=== PATIENT | female | born 1930 | race Caucasian/White ===

== ENCOUNTER 2018-04-27 13:13 | Emergency (ER) | payer MEDICARE ==
--- NOTE | 2018-04-27 13:37 | ERPHSYRPT ---
- History of Present Illness Time Seen by Provider: 04/27/18 13:15 Historian: patient, family Patient Subjective Stated Complaint: Pt arrived via Dr. Brooks in a vehicle at the ambulance bay. Pt holding chest, stated she was cooking and was eating and she was having chest pain. Triage Nursing Assessment: Pt alert and oriented X3, skin pale, cool, clammy. PT holding her chest, able to speak in clear full sentences. Pt in no apparent respiratory distress noted. Physician History: 88 y/o white female was eating lunch with family when she suddenly having substernal cp. no radiation. pt has significant cardiac hx and her novelty dipper is dr. [place]. she has a cardiac EF of < 30%. pt denies soa. Timing/Duration: today Activities at Onset: other (eating lunch) Quality: pressure Location: substernal Chest Pain Radiation: no radiation Severity of Pain-Max: moderate Severity of Pain-Current: mild Modifying Factors: Improves With: nothing Associated Symptoms: No nausea, No vomiting, No palpitations, No heartburn, No abdominal pain, No shortness of breath, No cough, No hurts to breathe, No fatigue, No weakness Prior Chest Pain/Cardiac Workup: cardiac cath, echocardiography Nitro Today/Relief: no nitro taken today Aspirin Treatment Today: 81 mg x 4, provided by ED Allergies/Adverse Reactions: No Known Drug Allergies Allergy (Unverified 04/27/18 13:29) Home Medications: Alprazolam 0.5 mg [xanAX 0.5 MG] 0.5 mg PO DAILY PRN 04/27/18 [History] Amiodarone HCl 200 mg [Cordarone 200 MG] 200 mg PO DAILY 04/27/18 [History ] Apixaban [Eliquis 2.5 mg Tablet] 2.5 mg PO BID 04/27/18 [History] Furosemide 20 mg [Lasix 20 mg] 20 mg PO DAILY 04/27/18 [History] Gabapentin 100 mg PO DAILY 04/27/18 [History] Metformin HCl 500 mg PO BID 04/27/18 [History] Metoprolol Tartrate 25 mg PO DAILY 04/27/18 [History] Omeprazole 20 mg PO DAILY 04/27/18 [History] Potassium Chloride 10 meq PO DAILY 04/27/18 [History] Pravastatin Sodium 40 mg PO DAILY 04/27/18 [History] Ropinirole HCl 4 mg PO DAILY 04/27/18 [History] Sacubitril/Valsartan [Entresto 97 mg-103 mg Tablet] 1 tab PO DAILY 04/27/18 [ History] Sulfasalazine 500 mg [Azulfidine 500 mg] 500 mg PO DAILY 04/27/18 [History ] Hx Tetanus, Diphtheria Vaccination/Date Given: No Hx Influenza Vaccination/Date Given: No Hx Pneumococcal Vaccination/Date Given: No Immunizations Up to Date: Yes - Review of Systems Constitutional: No Symptoms Eyes: No Symptoms Ears, Nose, & Throat: No Symptoms Respiratory: No Symptoms Cardiac: Chest Pain Abdominal/Gastrointestinal: No Symptoms Genitourinary Symptoms: No Symptoms Musculoskeletal: No Symptoms Skin: No Symptoms Neurological: No Symptoms Psychological: No Symptoms Endocrine: No Symptoms Hematologic/Lymphatic: No Symptoms Immunological/Allergic: No Symptoms All Other Systems: Reviewed and Negative - Past Medical History Pertinent Past Medical History: Yes Neurological History: No Pertinent History ENT History: Cataracts Cardiac History: Angina, Arrhythmia, Hypertension Respiratory History: CHF Endocrine Medical History: Diabetes Type II Musculoskeletal History: Arthritis GI Medical History: Gallbladder Disease History: Renal Disease Psycho-Social History: No Pertinent History Female Reproductive Disorders: No Pertinent History - Past Surgical History Past Surgical History: Yes Neuro Surgical History: No Pertinent History Cardiac: No Pertinent History Respiratory: No Pertinent History Gastrointestinal: No Pertinent History Genitourinary: No Pertinent History Musculoskeletal: No Pertinent History Other Surgical History: radha. hysterectomy - Social History Smoking Status: Former smoker Exposure to second hand smoke: No Drug Use: none Patient Lives Alone: Yes - Female History Hx Now: No - Nursing Vital Signs Nursing Vital Signs: Initial Vital Signs Temperature 98.6 F 04/27/18 13:18 Pulse Rate 120 H 04/27/18 13:18 Respiratory Rate 16 04/27/18 13:18 Blood Pressure 196/98 04/27/18 13:18 O2 Sat by Pulse Oximetry 97 04/27/18 13:18 Pain Scale Pain Intensity 8 - Physical Exam General Appearance: no apparent distress, alert Eye Exam: PERRL/EOMI, eyes nml inspection Ears, Nose, Throat Exam: normal ENT inspection, moist mucous membranes Neck Exam: normal inspection, non-tender, supple, full range of motion Respiratory Exam: normal breath sounds, chest tenderness, lungs clear, airway intact, No respiratory distress, No accessory muscle use, No rhonchi, No wheezing, No stridor Cardiovascular Exam: regular rate/rhythm, normal heart sounds, normal peripheral pulses Gastrointestinal/Abdomen Exam: soft, normal bowel sounds, No tenderness, No guarding, No rebound Pelvic Exam: not done Rectal Exam: not done Back Exam: normal inspection, normal range of motion, No CVA tenderness, No vertebral tenderness Extremity Exam: normal inspection, normal range of motion, pelvis stable Neurologic Exam: alert, oriented x 3, cooperative, tape controlled machine stitcher II-XII nml as tested Skin Exam: normal color, warm, dry Lymphatic Exam: adenopathy SpO2 Interpretation: normal SpO2: 97 Oxygen Delivery: Room Air - Course Nursing assessment & vital signs reviewed: Yes EKG Interpreted by Me: RATE (122), Sinus Rhythm, NORMAL AXIS, NORMAL INTERVALS, Non-specific ST Changes (? milddepression 11, 111, avf, v2, v3), Other Ordered Tests: Active Orders 24 hr Category Date Time Status Clipper Operator STAT Care 04/27/18 13:40 Active EKG-ER Only STAT Care 04/27/18 13:39 Active IV Insertion STAT Care 04/27/18 13:39 Active CBC W DIFF Stat Lab 04/27/18 13:30 Received CMP Routine Lab 04/27/18 14:00 Received D-DIMER QUANTITATION Stat Lab 04/27/18 13:30 Received NT PRO BNP Stat Lab 04/27/18 13:30 Completed PROTIME WITH INR Stat Lab 04/27/18 13:30 Received TROPONIN Q3H Lab 04/27/18 13:30 Completed TROPONIN Q3H Lab 04/27/18 16:45 Ordered TROPONIN Q3H Lab 04/27/18 19:45 Ordered TROPONIN Q3H Lab 04/27/18 22:45 Ordered TROPONIN Q3H Lab 04/28/18 01:45 Ordered Medication Summary Generic Name Dose Route Start Last Admin Trade Name Freq PRN Reason Stop Dose Admin Sodium Chloride 1,000 mls @ 100 mls/hr 04/27/18 13:45 04/27/18 14:05 Sodium Chloride 0.9% 1000 Ml IV 05/27/18 13:44 100 mls/hr .Q10H ELSIE Administration Nitroglycerin 0.4 mg 04/27/18 14:24 Nitrostat 0.4 Mg Tablet SL 05/27/18 14:23 Q5MIN PRN MR X 3 PRN CHEST PAIN Discontinued Medications Generic Name Dose Route Start Last Admin Trade Name Sherman PRN Reason Stop Dose Admin Aspirin 324 mg 04/27/18 13:39 04/27/18 13:43 Baby Aspirin 81 Mg Chew PO 04/27/18 13:40 324 mg STAT ONE Administration Morphine Sulfate 1 mg 04/27/18 14:00 04/27/18 14:16 Morphine Sulfate 2 Mg Inj IV 04/27/18 14:01 1 mg STAT ONE Administration Morphine Sulfate Confirm 04/27/18 14:05 Morphine Sulfate 2 Mg Inj Administered 04/27/18 14:06 Dose 2 mg .ROUTE .STK-MED ONE Morphine Sulfate 1 mg 04/27/18 14:26 Morphine Sulfate 2 Mg Inj IV 04/27/18 14:27 STAT ONE Nitroglycerin 0.4 mg 04/27/18 13:39 04/27/18 13:43 Nitrostat 0.4 Mg (Ed) SL 04/27/18 13:40 0.4 mg STAT ONE Administration Ondansetron HCl 4 mg 04/27/18 14:01 04/27/18 14:17 Zofran 4 Mg/2 Ml Vial IV 04/27/18 14:02 4 mg STAT ONE Administration Ondansetron HCl Confirm 04/27/18 14:05 Zofran 4 Mg/2 Ml Vial Administered 04/27/18 14:06 Dose 4 mg .ROUTE .STK-MED ONE Lab/Rad Data: Laboratory Result Diagrams 04/27/18 13:30 Laboratory Results 04/27/18 04/27/18 04/27/18 Range/Units 13:30 13:30 13:30 WBC 7.2 (4.0-10.5) K/mm3 RBC 4.19 (4.1-5.4) M/mm3 Hgb 12.7 (12.0-16.0) gm/dl Hct 39.4 (35-47) % MCV 94.0 (78-100) fl MCH 30.3 (26-32) pg MCHC 32.2 (32-36) g/dl RDW 14.8 H (11.5-14.0) % Plt Count 228 (150-450) K/mm3 MPV 10.5 H (6-9.5) fl Gran % 55.4 (36.0-66.0) % Eos # (Auto) 0.03 (0-0.5) Absolute Lymphs (auto) 2.54 (1.0-4.6) Absolute Monos (auto) 0.63 (0.0-1.3) Lymphocytes % 35.2 (24.0-44.0) % Monocytes % 8.7 (0.0-12.0) % Eosinophils % 0.4 (0.00-5.0) % Basophils % 0.3 (0.0-0.4) % Absolute Granulocytes 4.00 (1.4-6.9) Basophils # 0.02 (0-0.4) Troponin I < 0.012 (0.000-0.034) ng/mL NT-Pro-B Natriuret Pep 493 (0-1800) pg/mL - Progress Progress: improved, re-examined Air Movement: good Blood Culture(s) Obtained: No Antibiotics given: No Discussed with DrDavid: Jase Brooks (brad) Counseled pt/family regarding: lab results, diagnosis, need for follow-up - Departure Time of Disposition: 14:32 Departure Disposition: Transfer Clinical Impression: Chest pain, ST segment depression Condition: Stable Critical Care Time: No Referrals: ALEX BROOKS [Primary Care Provider] -
[2018-04-27] MEDS ORDERED: BABY ASPIRIN 81 MG CHEW PO ONE (13:39)
[2018-04-27] MEDS: Nitrostat 0.4 MG (ED) SL ONE (13:43)
[2018-04-27] MEDS ORDERED: Sodium Chloride 0.9% 1000 ML 1,000 ML IV SCH (13:45)
[2018-04-27] MEDS ORDERED: Sodium Chloride 0.9% 1000 ML 1,000 ML ONE (13:46)
[2018-04-27 13:57] LABS: BASOPHIL % 0.3 % (0.0-0.4); Basophil (Absolute #) 0.02 (0-0.4); Eosinophil % 0.4 % (0.00-5.0); Eosinophil (Absolute #) 0.03 (0-0.5); Granulocytes % 55.4 % (36.0-66.0); Hematocrit 39.4 % (35-47); Hemoglobin 12.7 gm/dl (12.0-16.0); Lymphocyte (Absolute #) 2.54 (1.0-4.6); Lymphocytes % 35.2 % (24.0-44.0); Mean Corpuscular Hemoglobin 30.3 pg (26-32); Mean Corpuscular Hgb Concent. 32.2 g/dl (32-36); Mean Platelet Volume 10.5 fl (6-9.5); Monocyte (Absolute #) 0.63 (0.0-1.3); Monocytes % 8.7 % (0.0-12.0); Platelet Count 228 K/mm3 (150-450); Red Blood Count 4.19 M/mm3 (4.1-5.4); Red Cell Distribution Width 14.8 % (11.5-14.0); White Blood Count 7.2 K/mm3 (4.0-10.5)
[2018-04-27] MEDS ORDERED: MORPHINE SULFATE 2 MG INJ IV ONE ×2 (14:00→14:26)
[2018-04-27] MEDS ORDERED: Zofran 4 MG/2 ML VIAL IV ONE (14:01)
[2018-04-27] MEDS ORDERED: MORPHINE SULFATE 2 MG INJ ONE ×2 (14:05→15:03)
[2018-04-27] MEDS ORDERED: Zofran 4 MG/2 ML VIAL ONE (14:05)
[2018-04-27] MEDS ORDERED: Nitrostat 0.4 MG Tablet SL PRN (14:24)
[2018-04-27] MEDS ORDERED: Nitrostat 0.4 MG (ED) SL ONE (14:24)
[2018-04-27 14:26] LABS: INR 1.11 (0.8-3.0)
[2018-04-27 14:40] LABS: ALBUMIN 4.6 g/dL (3.5-5.0); ANION GAP 15.9 MEQ/L (5-15); BILIRUBIN,TOTAL 0.4 mg/dL (0.2-1.3); Calcium 9.6 mg/dL (8.4-10.2); Creatinine 1 1.36 mg/dL (0.52-1.04); Potassium 3.9 mmol/L (3.5-5.1); Total Protein 8.2 g/dL (6.3-8.2)
[2018-04-27 14:57] VITALS: BP 167/81; PULSE 92; O2SAT 100
== END 2018-04-27 15:45 | disposition short-term general hospital (02) ==
LOC: ED 13:13
DX: R07.9 Chest pain, unspecified (principal); R94.31 Abnormal electrocardiogram [ECG] [EKG]; Z79.899 Other long term (current) drug therapy; E11.9 Type 2 diabetes mellitus without complications; Z79.84 Long term (current) use of oral hypoglycemic drugs
CPT/HCPCS: 36415; 80053; 83880; 84484; 85025; 85379; 85610; 93005; 93041; 96374; 99285; J2270; J2405; A9270-GY

== ENCOUNTER 2018-05-30 20:31 | Emergency (ER) | payer MEDICARE ==
--- NOTE | 2018-05-30 21:00 | ERPHSYRPT ---
- History of Present Illness Time Seen by Provider: 05/30/18 20:52 Historian: patient Exam Limitations: no limitations Patient Subjective Stated Complaint: Pt states "I had open heart in april and I am in [facility] for rehab and my stomach feels odd. I had a very small bowel movement today and not much of one yesterday." Triage Nursing Assessment: Pt alert and oriented X 3, skin pwd. pt able to speak in clear full sentences. Pt in no apparent respiratory distress. PT abdomen slightly firm, a little distended with absent bowel sounds. Physician History: 80-year-old white female with recent CABG who is also on dialysis. Patient arrives with complaint of only 1 small bowel movement today she states that she has been having nausea and dry heaves. She denies any pain. She is not short of breath has no chest pain. Past medical history includes CABG, dialysis, renal failure, cataracts, angina, arrhythmia, high blood pressure, congestive heart failure, diabetes type 2, arthritis, gallbladder disease, renal disease. Past surgical history includes cholecystectomy, hysterectomy, CABG. Social history patient denies tobacco alcohol or illicit drug use. Timing/Duration: today Activities at Onset: none Quality: other (no pain) Abdominal Pain Onset Location: other (no pain) Severity of Pain-Max: none Severity of Pain-Current: none (she any pain on the wa) Modifying Factors: Worsens With: analgesics, antacids (vomiting), breathing, coughing, defecating, eating, exercise, lying down, movement, palpation, rest, urinating, vomiting, position (she was tender in the le), walking Associated Symptoms: nausea, vomiting, other (decreased stool), No back, No chest pain, No diaphoresis, No diarrhea, No fever/chills, No fatigue (she told me really no deb), No headache (she states she hurts in he), No heartburn, No loss of appetite, No neck pain, No rash, No shortness of breath, No syncope, No weakness Allergies/Adverse Reactions: No Known Drug Allergies Allergy (Unverified 04/27/18 13:29) Home Medications: Alprazolam 0.5 mg [xanAX 0.5 MG] 0.5 mg PO HS 04/27/18 [History] Metoprolol Tartrate 25 mg PO DAILY 04/27/18 [History] Pravastatin Sodium 40 mg PO HS 04/27/18 [History] Ropinirole HCl 4 mg PO HS 04/27/18 [History] Sulfasalazine 500 mg [Azulfidine 500 mg] 500 mg PO BID 04/27/18 [History] Amlodipine Besylate [Norvasc] 2.5 mg PO DAILY 05/30/18 [History] Aspirin [Aspirin EC] 81 mg PO DAILY 05/30/18 [History] Insulin Aspart [NovoLOG Insulin] 100 unit SQ DAILY 05/30/18 [History] Hx Tetanus, Diphtheria Vaccination/Date Given: No Hx Influenza Vaccination/Date Given: No Hx Pneumococcal Vaccination/Date Given: No Immunizations Up to Date: Yes - Review of Systems Constitutional: No Fever, No Chills Eyes: No Symptoms Ears, Nose, & Throat: No Symptoms Respiratory: No Cough, No Dyspnea Cardiac: No Chest Pain, No Edema, No Syncope Abdominal/Gastrointestinal: Nausea, Vomiting, No Abdominal Pain, No Diarrhea, No Constipation, No Hematemesis, No Hematochezia, No Melena, No Dysphagia, No Appetite Changes Genitourinary Symptoms: No Dysuria Musculoskeletal: No Back Pain, No Neck Pain Skin: No Rash Neurological: No Dizziness, No Focal Weakness, No Sensory Changes Psychological: No Symptoms Endocrine: No Symptoms All Other Systems: Reviewed and Negative - Past Medical History Pertinent Past Medical History: Yes Neurological History: No Pertinent History ENT History: Cataracts Cardiac History: Angina, Arrhythmia, Hypertension Respiratory History: CHF Endocrine Medical History: Diabetes Type II Musculoskeletal History: Arthritis GI Medical History: Gallbladder Disease History: Renal Disease Psycho-Social History: No Pertinent History Female Reproductive Disorders: No Pertinent History - Past Surgical History Past Surgical History: Yes Neuro Surgical History: No Pertinent History Cardiac: No Pertinent History Respiratory: No Pertinent History Gastrointestinal: No Pertinent History Genitourinary: No Pertinent History Musculoskeletal: No Pertinent History Other Surgical History: radha. hysterectomy. open heart - Social History Smoking Status: Smoker, status unknown Exposure to second hand smoke: No Drug Use: none Patient Lives Alone: No - Female History Hx Now: No - Nursing Vital Signs Nursing Vital Signs: Initial Vital Signs Temperature 99.1 F 05/30/18 20:34 Pulse Rate 97 H 05/30/18 20:34 Respiratory Rate 16 05/30/18 20:34 Blood Pressure 152/73 05/30/18 20:34 O2 Sat by Pulse Oximetry 94 L 05/30/18 20:34 Pain Scale Pain Intensity 0 - Physical Exam General Appearance: no apparent distress, alert Eye Exam: PERRL/EOMI, eyes nml inspection Ears, Nose, Throat Exam: normal ENT inspection, pharynx normal, moist mucous membranes Neck Exam: normal inspection, non-tender, supple, full range of motion Respiratory Exam: normal breath sounds, lungs clear, No respiratory distress Cardiovascular Exam: regular rate/rhythm, normal heart sounds, capillary refill <2 sec Gastrointestinal/Abdomen Exam: soft, No tenderness, No mass Back Exam: normal inspection, normal range of motion, No CVA tenderness, No vertebral tenderness Extremity Exam: normal inspection, normal range of motion, pelvis stable Neurologic Exam: alert, oriented x 3, cooperative, manager of case II-XII nml as tested, normal mood/affect, nml cerebellar function, sensation nml, No motor deficits Skin Exam: normal color, warm, dry SpO2 Interpretation: normal (94%) SpO2: 94 Oxygen Delivery: Room Air - Course Nursing assessment & vital signs reviewed: Yes EKG Interpreted by Me: RATE (93 bpm), Sinus Rhythm, NORMAL AXIS, Other (EKG: Sinus rhythm, 93 bpm, normal axis, no acute ST or T wave changes, compared to April 27, 2018) Ordered Tests: Active Orders 24 hr Category Date Time Status EKG-ER Only STAT Care 05/30/18 20:56 Active IV Insertion STAT Care 05/30/18 20:56 Active ABDOMEN AND PELVIS W/0 CONTRAS [CT] Stat Exams 05/30/18 20:56 Taken CHEST 1 VIEW (PORTABLE) Stat Exams 05/30/18 21:42 Taken AMYLASE Stat Lab 05/30/18 20:58 Completed BLOOD CULTURE Stat Lab 05/30/18 22:09 Received CBC W DIFF Stat Lab 05/30/18 20:58 Completed CMP Stat Lab 05/30/18 20:58 Completed LIPASE Stat Lab 05/30/18 20:58 Completed Lactic Acid Stat Lab 05/30/18 22:02 Completed Manual Differential NC Stat Lab 05/30/18 20:58 Completed Medication Summary Generic Name Dose Route Start Last Admin Trade Name Freq PRN Reason Stop Dose Admin Ceftriaxone Sodium/Dextrose 1 g in 50 mls @ 100 mls/hr 05/30/18 22:00 22:07 Rocephin 1 Gm-D5w 50 Ml Bag IV 05/30/18 22:29 100 ml/hr STAT STA 100 mls/hr Administration Discontinued Medications Generic Name Dose Route Start Last Admin Trade Name Sherman PRN Reason Stop Dose Admin Ceftriaxone Sodium/Dextrose Confirm 05/30/18 22:04 Rocephin 1 Gm-D5w 50 Ml Bag Administered 05/30/18 22:05 Dose 1 g in 50 mls @ ud IV .STK-MED ONE Lab/Rad Data: Laboratory Result Diagrams 05/30/18 20:58 05/30/18 20:58 Laboratory Results 05/30/18 05/30/18 05/30/18 Range/Units 22:02 20:58 20:58 WBC 6.9 (4.0-10.5) K/mm3 RBC 2.79 L (4.1-5.4) M/mm3 Hgb 8.0 L (12.0-16.0) gm/dl Hct 26.8 L (35-47) % MCV 96.1 (78-100) fl MCH 28.6 (26-32) pg MCHC 29.9 L (32-36) g/dl RDW 17.4 H (11.5-14.0) % Plt Count 355 (150-450) K/mm3 MPV 9.6 H (6-9.5) fl Absolute Granulocytes 4.18 (1.4-6.9) Segmented Neutrophils 50 (36.0-66.0) % Band Neutrophils 2 (0.0-2.0) % Lymphocytes (Manual) 27 (24-44) % Monocytes (Manual) 14 H (0.0-12.0) % Eosinophils (Manual) 2 (0.00-3.0) % Basophils (Manual) 1 (0.0-1.0) % Metamyelocytes 1 % Atypical Lymphocytes 3 % Hypochromia 2+ Platelet Estimate NORMAL (NORMAL) RBC Morphology ABNORMAL Polychromasia 1+ Poikilocytosis 1+ Ovalocytes 1+ Schistocytes 1+ Sodium 138 (137-145) mmol/L Potassium 4.7 (3.5-5.1) mmol/L Chloride 94 L (98-107) mmol/L Carbon Dioxide 29 (22-30) mmol/L Anion Gap 19.7 H (5-15) MEQ/L BUN 46 H (7-17) mg/dL Creatinine 5.91 H (0.52-1.04) mg/dL Estimated GFR 7.2 ML/MIN Glucose 107 H (74-106) mg/dL Lactic Acid 1.2 (0.4-2.0) Calcium 9.2 (8.4-10.2) mg/dL Total Bilirubin 0.50 (0.2-1.3) mg/dL AST 26 (14-36) U/L ALT 22 (0-35) U/L Alkaline Phosphatase 108 (38-126) U/L Serum Total Protein 7.5 (6.3-8.2) g/dL Albumin 3.7 (3.5-5.0) g/dL Amylase 125 H (30-110) U/L Lipase 438 H (23-300) U/L - Progress Progress: improved Progress Note: 05/30/18 21:53 This is a 88-year-old white female with history of recent CABG who is on dialysis has a history of renal failure angina arrhythmia high blood pressure congestive heart failure diabetes type 2 She is brought from the senior care by medics with complaint of nausea and vomiting she states she has only had one small stool today. She denies any chest pain she is not short of breath. Patient with an EKG remarkable for sinus rhythm 93 bpm normal axis no acute ST or T wave changes are noted Patient with us CT of the abdomen without contrast Impression: 1. Consolidation at both lung bases with large pleural effusion clinical correlation for pneumonia recommended. 2. 4.6 cm left ovarian cyst. 3. Colonic diverticulosis without evidence of diverticulitis Patient with a white count of 6.9 hemoglobin 8.0 hematocrit 26.8 platelets 355 Chemistry sodium 138 potassium 4.7 chloride 94 bicarbonate 29 BUN 46 creatinine 5.91 glucose 107. Patient does have an elevated amylase of 125 elevated lipase of 438 anion gap is 19.7. Impression 1 nausea and vomiting. 2 history of renal failure. 3. Consolidation at both lung bases with large pleural effusions. 4. History of recent CABG. Plan. Chest x-ray has been ordered in view of the patient's pleural effusions. I have ordered blood cultures and serum lactate. Expect effusion secondary to recent CABG patient without fever, without increased white count. Will discuss case with Dr. Brooks. 05/30/18 22:27 Patient with no abdominal pain at this time she did have some nausea. I've written for Phenergan 12.5 mg IV. I've discussed the patient's findings with Dr. Brooks. She does have a CT which shows consolidation of both lung bases with large pleural effusion clinical correlation for pneumonia recommended Chest x-ray shows a pneumonia in the right base this appears to be improved from previous. Patient is being treated at the senior care with Omnicef. Patient with an EKG which shows normal sinus rhythm 93 bpm normal axis no acute ST or T wave changes. Patient did have elevation of the patient's amylase and lipase with amylase of [address] Brooks states she will repeat these and will call the senior care to order these for tomorrow. Patient does not have an elevated white count is 6.9 hemoglobin 8.0 which is stable for this patient hematocrit 26.8 platelets 355. Patient's BUN and creatinine are 46 and 5.91 patient is scheduled for dialysis tomorrow. Patient has received Rocephin here in the emergency room. Will plan to discharge patient. Diagnosis nausea and vomiting. Right lower lobe pneumonia. Bilateral pleural effusions. History of renal failure on dialysis. Dr. Brooks would like the patient to return to the senior care continue current medications and treatment which includes Omnicef which has already been prescribed for the patient. She would also like the patient he will place on Phenergan Will write for 25 mg orally every 4-6 hours as needed for nausea and vomiting. Patient is to have dialysis as scheduled tomorrow. Dr. Brooks will contact the senior care to call out laboratory studies which she wishes to be performed. - Departure Time of Disposition: 22:30 Departure Disposition: Home Clinical Impression: Bilateral pleural effusion, history of recent CABG, Dialysis patient Nausea and vomiting Qualifiers: Vomiting type: unspecified Vomiting Intractability: non-intractable Qualified Code(s): R11.2 - Nausea with vomiting, unspecified Pneumonia Qualifiers: Pneumonia type: due to unspecified organism Laterality: right Lung location: lower lobe of lung Qualified Code(s): J18.1 - Lobar pneumonia, unspecified organism Chronic renal failure Qualifiers: Chronic kidney disease stage: unspecified stage Qualified Code(s): N18.9 - Chronic kidney disease, unspecified Condition: Fair Critical Care Time: No Referrals: ALFONSO BETH [Primary Care Provider] - Additional Instructions: Return to senior care. Continue current medications and treatment. Phenergan 25 mg orally every 4-6 hours as needed for nausea and vomiting. Dialysis tomorrow as scheduled. Follow-up with Dr. Brooks. Return for acute distress or for severe symptoms. Prescriptions: Promethazine HCl 25 mg [Phenergan 25 mg] 25 mg PO Q4-6HPRN PRN #12 tablet PRN Reason: nausea and vomiting
[2018-05-30 21:01] LABS: Hematocrit 26.8 % (35-47); Mean Cell Volume 96.1 fl (78-100); Mean Corpuscular Hgb Concent. 29.9 g/dl (32-36); Mean Platelet Volume 9.6 fl (6-9.5); Platelet Count 355 K/mm3 (150-450); Red Blood Count 2.79 M/mm3 (4.1-5.4); Red Cell Distribution Width 17.4 % (11.5-14.0); White Blood Count 6.9 K/mm3 (4.0-10.5)
[2018-05-30 21:06] LABS: ALBUMIN 3.7 g/dL (3.5-5.0); ANION GAP 19.7 MEQ/L (5-15); BILIRUBIN,TOTAL 0.5 mg/dL (0.2-1.3); Calcium 9.2 mg/dL (8.4-10.2); Creatinine 1 5.91 mg/dL (0.52-1.04); Potassium 4.7 mmol/L (3.5-5.1); Total Protein 7.5 g/dL (6.3-8.2)
[2018-05-30 21:07] LABS: Mean Corpuscular Hemoglobin 28.6 pg (26-32)
[2018-05-30] MEDS ORDERED: ROCEPHIN 1 Gm-D5w 50 ml Bag** 1 G/50 ML IVPB IV STA (22:00)
[2018-05-30] MEDS ORDERED: ROCEPHIN 1 Gm-D5w 50 ml Bag** 1 G/50 ML IVPB IV ONE (22:04)
[2018-05-30 22:16] LABS: ATYPICAL LYMPHS 3 %; BAND 2 % (0.0-2.0); Basophil 1 % (0.0-1.0); Eosinophil 2 % (0.00-3.0); Hypochromia 2+; Lymphocytes 27 % (24-44); Metamyelocyte 1 %; Monocyte 14 % (0.0-12.0); Neutrophils 50 % (36.0-66.0); Platelet Estimate NORMAL (NORMAL); Total Cells Counted 100
[2018-05-30 22:17] LABS: Polychromasia 1+
[2018-05-30 22:18] LABS: Ovalocytes 1+; Poikilocytosis 1+
[2018-05-30 22:19] LABS: Schistocytes 1+
[2018-05-30] MEDS ORDERED: Phenergan 25 MG INJ IV ONE (22:26)
[2018-05-30] MEDS ORDERED: Phenergan 25 MG INJ ONE (22:47)
[2018-05-30 22:52] VITALS: BP 151/88; PULSE 94; O2SAT 96
--- NOTE | 2018-05-31 08:50 | XRAY ---
Indication: Left abdomen pain, nausea, and vomiting. Multiple contiguous axial images obtained through the abdomen and pelvis without contrast as ordered. Comparison: None Lung bases demonstrates moderate bibasilar effusions with compressive atelectasis left greater than right. Tiny right lower lobe calcified granuloma. Heart is enlarged. PEG tube with balloon tip in the gastric lumen. Noncontrasted stomach and bowel loops appear nonobstructed. Normal appendix. Scattered left hemicolon diverticulosis greatest in the sigmoid. 4.4 cm left adnexal and 4.3 cm right adnexal cystic masses probably ovary in etiology. Partial hysterectomy and cholecystectomy. No free fluid/air. Left kidney is smaller in size. A few hepatic/splenic calcified granulomas. Remaining liver, pancreas, spleen, adrenal glands, kidneys, ureters, and bladder appear unremarkable for noncontrast exam. Moderate scattered aortoiliac calcifications without AAA. Osseous structures intact with moderate degenerative changes throughout the spine and old 8 right rib fracture. No ventral or inguinal hernias. Impression: 1. Bilateral adnexal cystic masses probably ovary in etiology. Pelvic sonogram may yield further information. 2. Cardiomegaly with bibasilar effusions/atelectasis. Rule out cardiac decompensation. 3. Colonic diverticulosis, asymmetric small left kidney, and evidence for old granulomatous disease. Comment: Preliminary interpretation was made by [facility] who does not report additional findings including cardiomegaly and right adnexa cystic mass. CTDI 20.40
--- NOTE | 2018-05-31 08:54 | XRAY ---
Indication: Vomiting. Comparison: May 24, 2018. Portable chest again demonstrates moderate bibasilar effusions/atelectasis with minimal worsening on the right. Heart is borderline enlarged again with CABG surgery and right double lumen dialysis catheter. No new cardiopulmonary abnormalities.
== END 2018-05-30 23:09 ==
LOC: ED 20:31
DX: J90 Pleural effusion, not elsewhere classified (principal); Z95.1 Presence of aortocoronary bypass graft; Z99.2 Dependence on renal dialysis; R11.2 Nausea with vomiting, unspecified; J18.1 Lobar pneumonia, unspecified organism; N18.9 Chronic kidney disease, unspecified; E11.9 Type 2 diabetes mellitus without complications; I10 Essential (primary) hypertension; I50.9 Heart failure, unspecified; N19 Unspecified kidney failure; Z79.899 Other long term (current) drug therapy
CPT/HCPCS: 36000; 36415; 71045; 74176; 80053; 82150; 83605; 83690; 85025; 87040; 93005; 96365; 96374; 99284; J0696; J2550

== ENCOUNTER 2018-06-05 21:42 | Emergency (ER) | payer MEDICARE ==
[2018-06-05] MEDS ORDERED: Sodium Chloride 0.9% 1000 ML 1,000 ML IV SCH (22:00)
--- NOTE | 2018-06-05 22:00 | ERPHSYRPT ---
- History of Present Illness Time Seen by Provider: 06/05/18 21:56 Historian: patient, EMS Exam Limitations: no limitations Physician History: 88 year old female SP CABG/[place] a few weeks ago today with tachycardia/tachypnea and dry heaves relieved by phenergan on dialysis also and PEG tube discussed with Dr. Brooks and is pt of Dr billy. Timing/Duration: today Activities at Onset: none Quality: dullness Abdominal Pain Onset Location: epigastric Pain Radiation: no radiation Severity of Pain-Max: moderate Severity of Pain-Current: moderate Modifying Factors: Improves With: nothing Associated Symptoms: nausea, shortness of breath, vomiting Previous symptoms: no prior history Allergies/Adverse Reactions: No Known Drug Allergies Allergy (Verified 06/05/18 22:05) Home Medications: Alprazolam 0.5 mg [xanAX 0.5 MG] 0.5 mg PO HS 04/27/18 [History] Metoprolol Tartrate 25 mg PO DAILY 04/27/18 [History] Pravastatin Sodium 40 mg PO HS 04/27/18 [History] Ropinirole HCl 4 mg PO HS 04/27/18 [History] Sulfasalazine 500 mg [Azulfidine 500 mg] 500 mg PO BID 04/27/18 [History] Amlodipine Besylate [Norvasc] 2.5 mg PO DAILY 05/30/18 [History] Aspirin [Aspirin EC] 81 mg PO DAILY 05/30/18 [History] Insulin Aspart [NovoLOG Insulin] 100 unit SQ DAILY 05/30/18 [History] Hx Tetanus, Diphtheria Vaccination/Date Given: No Hx Influenza Vaccination/Date Given: No Hx Pneumococcal Vaccination/Date Given: No - Review of Systems Constitutional: No Fever, No Chills Eyes: No Symptoms Ears, Nose, & Throat: No Symptoms Respiratory: Dyspnea, No Cough Cardiac: No Chest Pain, No Edema, No Syncope Abdominal/Gastrointestinal: Abdominal Pain, Nausea, Vomiting, No Diarrhea Genitourinary Symptoms: No Dysuria Musculoskeletal: No Back Pain, No Neck Pain Skin: No Rash Neurological: No Dizziness, No Focal Weakness, No Sensory Changes Psychological: No Symptoms Endocrine: No Symptoms All Other Systems: Reviewed and Negative - Past Medical History Pertinent Past Medical History: Yes Neurological History: No Pertinent History ENT History: Cataracts Cardiac History: Angina, Arrhythmia, Hypertension Respiratory History: CHF Endocrine Medical History: Diabetes Type II Musculoskeletal History: Arthritis GI Medical History: Gallbladder Disease History: Renal Disease Psycho-Social History: No Pertinent History Female Reproductive Disorders: No Pertinent History - Past Surgical History Past Surgical History: Yes Neuro Surgical History: No Pertinent History Cardiac: No Pertinent History Respiratory: No Pertinent History Gastrointestinal: No Pertinent History Genitourinary: No Pertinent History Musculoskeletal: No Pertinent History Other Surgical History: radha. hysterectomy. open heart - Social History Smoking Status: Smoker, status unknown Exposure to second hand smoke: No Drug Use: none Patient Lives Alone: No - Nursing Vital Signs Nursing Vital Signs: Initial Vital Signs Temperature 98.8 F 06/05/18 21:49 Pulse Rate 108 H 06/05/18 21:49 Respiratory Rate 35 H 06/05/18 21:49 Blood Pressure 160/101 06/05/18 21:49 O2 Sat by Pulse Oximetry 100 06/05/18 21:49 Pain Scale Pain Intensity 0 - Physical Exam General Appearance: no apparent distress, alert Eye Exam: PERRL/EOMI, eyes nml inspection Ears, Nose, Throat Exam: normal ENT inspection, pharynx normal, moist mucous membranes Neck Exam: normal inspection, non-tender, supple, full range of motion Respiratory Exam: normal breath sounds, lungs clear, No respiratory distress Cardiovascular Exam: regular rate/rhythm, normal heart sounds, tachycardia Gastrointestinal/Abdomen Exam: soft, No tenderness, No mass, No pulsatile mass, No rebound, No hernia Pelvic Exam: deferred Rectal Exam: deferred Back Exam: normal inspection, normal range of motion, No CVA tenderness, No vertebral tenderness Extremity Exam: normal inspection, normal range of motion, pelvis stable Neurologic Exam: alert, oriented x 3, cooperative, normal mood/affect, nml cerebellar function, sensation nml, No motor deficits Skin Exam: normal color, warm, dry SpO2 Interpretation: borderline oxygenation O2 Delivery: Nasal Cannula - Course Nursing assessment & vital signs reviewed: Yes EKG Interpreted by Me: Sinus Rhythm, NORMAL AXIS, NORMAL INTERVALS, NORMAL QRS, Non-specific ST Changes - Radiology Exams Chest X-ray Interpretation: Reviewed by me, No Pneumothorax, Other (mod CHF and atelectasis) Ordered Tests: Active Orders 24 hr Category Date Time Status Medical Affairs Manager STAT Care 06/05/18 22:02 Active Clean Catch Urine Specimen STAT Care 06/05/18 22:00 Active EKG-ER Only STAT Care 06/05/18 22:00 Active IV Insertion STAT Care 06/05/18 22:00 Active Oxygen-ED Only Nasal Cannula 3 lpm Care 06/05/18 22:00 Active CHEST 1 VIEW (PORTABLE) Stat Exams 06/05/18 22:01 Taken AMYLASE Stat Lab 06/05/18 22:30 Completed CBC W DIFF Stat Lab 06/05/18 22:30 Completed CMP Stat Lab 06/05/18 22:30 Completed CULTURE,URINE Stat Lab 06/05/18 22:30 Received D-DIMER QUANTITATION Stat Lab 06/05/18 22:30 Completed LIPASE Stat Lab 06/05/18 22:30 Completed Lactic Acid Stat Lab 06/05/18 22:00 Completed Manual Differential NC Stat Lab 06/05/18 22:30 Completed NT PRO BNP Stat Lab 06/05/18 22:30 Completed TROPONIN Q3H Lab 06/05/18 22:30 Completed TROPONIN Q3H Lab 06/06/18 01:15 Ordered TROPONIN Q3H Lab 06/06/18 04:15 Ordered TROPONIN Q3H Lab 06/06/18 07:15 Ordered TROPONIN Q3H Lab 06/06/18 10:15 Ordered UA W/RFX UR CULTURE Stat Lab 06/05/18 22:30 Completed Medication Summary Generic Name Dose Route Start Last Admin Trade Name Freq PRN Reason Stop Dose Admin Sodium Chloride 1,000 mls @ 50 mls/hr 06/05/18 22:00 06/05/18 22:16 Sodium Chloride 0.9% 1000 Ml IV 07/05/18 21:59 50 mls/hr .Q20H ELSIE Administration Lab/Rad Data: Laboratory Result Diagrams 06/05/18 22:30 06/05/18 22:30 Laboratory Results 06/05/18 06/05/18 06/05/18 Range/Units 22:30 22:30 22:30 WBC (4.0-10.5) K/mm3 RBC (4.1-5.4) M/mm3 Hgb (12.0-16.0) gm/dl Hct (35-47) % MCV (78-100) fl MCH (26-32) pg MCHC (32-36) g/dl RDW (11.5-14.0) % Plt Count (150-450) K/mm3 MPV (6-9.5) fl Absolute Granulocytes (1.4-6.9) D-Dimer 2311 H* (215-500) ng/mL Sodium (137-145) mmol/L Potassium (3.5-5.1) mmol/L Chloride (98-107) mmol/L Carbon Dioxide (22-30) mmol/L Anion Gap (5-15) MEQ/L BUN (7-17) mg/dL Creatinine (0.52-1.04) mg/dL Estimated GFR ML/MIN Glucose (74-106) mg/dL Lactic Acid (0.4-2.0) Calcium (8.4-10.2) mg/dL Total Bilirubin (0.2-1.3) mg/dL AST (14-36) U/L ALT (0-35) U/L Alkaline Phosphatase (38-126) U/L Troponin I 0.052 H* (0.000-0.034) ng/mL NT-Pro-B Natriuret Pep (0-1800) pg/mL Serum Total Protein (6.3-8.2) g/dL Albumin (3.5-5.0) g/dL Amylase (30-110) U/L Lipase (23-300) U/L Urine Color YELLOW (YELLOW) Urine Appearance SLIGHTLY CLOUDY (CLEAR) Urine pH 7.0 (5-6) Ur Specific [place] 1.015 (1.005-1.025) Urine Protein 100 (Negative) Urine Ketones TRACE (NEGATIVE) Urine Blood NEGATIVE (0-5) Lee/ul Urine Nitrite NEGATIVE (NEGATIVE) Urine Bilirubin NEGATIVE (NEGATIVE) Urine Urobilinogen NEGATIVE (0-1) mg/dL Ur Leukocyte Esterase TRACE (NEGATIVE) Urine WBC (Auto) 16-25 (0-5) /HPF Urine RBC (Auto) 6-10 (0-2) /HPF U Epithel Cells (Auto) FEW (FEW) /HPF Urine Bacteria (Auto) NONE (NEGATIVE) /HPF U Non-Squamous Epi Cells RARE (FEW) /HPF Other Casts (Auto) 2-5 (NEGATIVE) /LPF Urine Mucus (Auto) SLIGHT (NEGATIVE) /HPF Urine Culture Reflexed YES (NO) Urine Glucose NEGATIVE (NEGATIVE) mg/dL 06/05/18 06/05/18 06/05/18 Range/Units 22:30 22:30 22:00 WBC 9.9 (4.0-10.5) K/mm3 RBC 3.02 L (4.1-5.4) M/mm3 Hgb 8.6 L (12.0-16.0) gm/dl Hct 29.6 L (35-47) % MCV 98.0 (78-100) fl MCH 28.4 (26-32) pg MCHC 29.1 L (32-36) g/dl RDW 17.9 H (11.5-14.0) % Plt Count 302 (150-450) K/mm3 MPV 9.6 H (6-9.5) fl Absolute Granulocytes 7.02 H (1.4-6.9) D-Dimer (215-500) ng/mL Sodium 137 (137-145) mmol/L Potassium 3.5 (3.5-5.1) mmol/L Chloride 95 L (98-107) mmol/L Carbon Dioxide 31 H (22-30) mmol/L Anion Gap 15.4 H (5-15) MEQ/L BUN 36 H (7-17) mg/dL Creatinine 4.99 H (0.52-1.04) mg/dL Estimated GFR 8.7 ML/MIN Glucose 129 H (74-106) mg/dL Lactic Acid 1.4 (0.4-2.0) Calcium 9.0 (8.4-10.2) mg/dL Total Bilirubin 0.50 (0.2-1.3) mg/dL AST 20 (14-36) U/L ALT 11 (0-35) U/L Alkaline Phosphatase 98 (38-126) U/L Troponin I (0.000-0.034) ng/mL NT-Pro-B Natriuret Pep 59878 H (0-1800) pg/mL Serum Total Protein 7.5 (6.3-8.2) g/dL Albumin 3.6 (3.5-5.0) g/dL Amylase 72 (30-110) U/L Lipase 118 (23-300) U/L Urine Color (YELLOW) Urine Appearance (CLEAR) Urine pH (5-6) Ur Specific [place] (1.005-1.025) Urine Protein (Negative) Urine Ketones (NEGATIVE) Urine Blood (0-5) Lee/ul Urine Nitrite (NEGATIVE) Urine Bilirubin (NEGATIVE) Urine Urobilinogen (0-1) mg/dL Ur Leukocyte Esterase (NEGATIVE) Urine WBC (Auto) (0-5) /HPF Urine RBC (Auto) (0-2) /HPF U Epithel Cells (Auto) (FEW) /HPF Urine Bacteria (Auto) (NEGATIVE) /HPF U Non-Squamous Epi Cells (FEW) /HPF Other Casts (Auto) (NEGATIVE) /LPF Urine Mucus (Auto) (NEGATIVE) /HPF Urine Culture Reflexed (NO) Urine Glucose (NEGATIVE) mg/dL - Progress Progress: improved, re-examined Progress Note: 06/06/18 00:[address] Santiago covering for Dr Billy and also with pt and family and all agree best to transfer pt to [facility] for further w/u of cardiac condition and treatment. Discussed with : Wenceslao Will see patient in: hospital (full admit) Counseled pt/family regarding: lab results, diagnosis, need for follow-up, rad results - Departure Time of Disposition: 00:55 Departure Disposition: Transfer Clinical Impression: Dialysis patient, Chronic renal failure, Nausea and vomiting, CHF (congestive heart failure), elevated trop and D Dimers Condition: Good Critical Care Time: No Referrals: ALFONSO BETH [Primary Care Provider] - Instructions: Heart Failure
[2018-06-05] MEDS ORDERED: Sodium Chloride 0.9% 1000 ML 1,000 ML ONE (22:13)
[2018-06-05 22:41] LABS: Granulocyte Absolute (ANC) 7.02 (1.4-6.9); Hematocrit 29.6 % (35-47); Hemoglobin 8.6 gm/dl (12.0-16.0); Mean Corpuscular Hgb Concent. 29.1 g/dl (32-36); Mean Platelet Volume 9.6 fl (6-9.5); Platelet Count 302 K/mm3 (150-450); Red Blood Count 3.02 M/mm3 (4.1-5.4); Red Cell Distribution Width 17.9 % (11.5-14.0); White Blood Count 9.9 K/mm3 (4.0-10.5)
[2018-06-05 22:43] LABS: Mean Corpuscular Hemoglobin 28.4 pg (26-32)
[2018-06-05 23:02] LABS: ALBUMIN 3.6 g/dL (3.5-5.0); ANION GAP 15.4 MEQ/L (5-15); BILIRUBIN,TOTAL 0.5 mg/dL (0.2-1.3); Creatinine 1 4.99 mg/dL (0.52-1.04); Potassium 3.5 mmol/L (3.5-5.1); Total Protein 7.5 g/dL (6.3-8.2)
[2018-06-05 23:19] LABS: Appearance SLIGHTLY CLOUDY (CLEAR); Bilirubin NEGATIVE (NEGATIVE); Blood NEGATIVE Ery/ul (0-5); Epithelial Cells FEW /HPF (FEW); Glucose NEGATIVE (NEGATIVE); Ketones TRACE (NEGATIVE); Leukocyte Esterase TRACE (NEGATIVE); Mucus SLIGHT /HPF (NEGATIVE); Nitrite NEGATIVE (NEGATIVE); Non-Squamous Epithelial Cells RARE /HPF (FEW); Protein,Urine Dip 100 (Negative); Specific Gravity 1.015 (1.005-1.025); Urobilinogen NEGATIVE mg/dL (0-1)
[2018-06-06] MEDS ORDERED: BABY ASPIRIN 81 MG CHEW PO ONE (00:52)
[2018-06-06] MEDS ORDERED: PROVENTIL 2.5 MG/3 ML NEB IH ONE ×2 (01:38)
[2018-06-06] MEDS ORDERED: Lasix 40 MG/4 ML IV ONE (02:14)
[2018-06-06] MEDS ORDERED: NITRO-BID 2% UD PACKETS TOP ONE (02:16)
[2018-06-06] MEDS ORDERED: Lasix 40 MG/4 ML ONE (02:19)
[2018-06-06] MEDS ORDERED: NITRO-BID 2% UD PACKETS ONE (02:19)
[2018-06-06] MEDS ORDERED: Ntg 0.2MG/Ml in D5W GLASS*** 250 ML IV PRN (02:45)
[2018-06-06] MEDS ORDERED: Ntg 0.2MG/Ml in D5W GLASS*** 250 ML IV ONE (02:48)
[2018-06-06] MEDS ORDERED: Furosemide 100mg/10 ml Vial IV ONE (02:49)
[2018-06-06 02:51] VITALS: BP 174/98; PULSE 126; O2SAT 98
[2018-06-06 02:51] LABS: A-aADO2 159; ABG HEMOGLOBIN 9.4; ABG POTASSIUM 3.5 (3.5-5.1); ABG SITE RIGHT BRACHIAL; ARTERIAL BLD GAS O2 SATURATION 94.2 % (95-100); ARTERIAL BLOOD GAS BASE EXCESS 2.8 (-2.0-2.0); ARTERIAL BLOOD GAS FIO2 40 %; ARTERIAL BLOOD GAS PCO2 48 mmHg (35-45); ARTERIAL BLOOD GAS PO2 66 mmHg (75-100); ARTERIAL BLOOD GAS pH 7.38 (7.35-7.45); CARBOXYHEMOGLOBIN 1.9 % THgb (0.0-6.9); HCO3- 28.4 (22-28); HGB O2 SAT 91.9 g/dF (94-100); Methhemoglobin 0.5 % (1.4-1.5); paO2 pAO1 0.29
[2018-06-06] MEDS ORDERED: ROCEPHIN 1 Gm-D5w 50 ml Bag** 1 G/50 ML IVPB IV STA (02:52)
[2018-06-06] MEDS ORDERED: ROCEPHIN 1 Gm-D5w 50 ml Bag** 1 G/50 ML IVPB IV ONE (02:53)
[2018-06-06] MEDS ORDERED: Furosemide 100mg/10 ml Vial ONE (02:53)
[2018-06-06] MEDS ORDERED: BABY ASPIRIN 81 MG CHEW ONE (06:26)
--- NOTE | 2018-06-06 09:20 | XRAY ---
Indication: Short of breath. Comparison: May 30, 2018. Portable chest again demonstrates cardiomegaly with slight worsening moderate bilateral effusions/atelectasis favoring cardiac decompensation. Superimposed pneumonia not completely excluded. Stable CABG surgery and right-sided double-lumen dialysis catheter.
[2018-06-06 10:54] LABS: BAND 6 % (0.0-2.0); Basophil 1 % (0.0-1.0); Lymphocytes 19 % (24-44); Monocyte 11 % (0.0-12.0); Neutrophils 63 % (36.0-66.0); Platelet Estimate NORMAL (NORMAL); Polychromasia 1+; Total Cells Counted 100
[2018-06-06 10:55] LABS: Macrocytosis 1+
== END 2018-06-06 03:05 | disposition short-term general hospital (02) ==
LOC: ED 21:42
DX: I12.9 Hypertensive chronic kidney disease with stage 1 through stage 4 chronic kidney disease, or unspecified chronic kidney disease (principal); N18.9 Chronic kidney disease, unspecified; R11.2 Nausea with vomiting, unspecified; E11.9 Type 2 diabetes mellitus without complications; I50.9 Heart failure, unspecified; R74.8 Abnormal levels of other serum enzymes; R79.1 Abnormal coagulation profile; Z79.899 Other long term (current) drug therapy; I25.2 Old myocardial infarction; Z93.1 Gastrostomy status; Z99.2 Dependence on renal dialysis; I10 Essential (primary) hypertension
CPT/HCPCS: 36000; 36415; 36600; 71045; 80053; 81001; 82150; 82375; 82803; 83605; 83690; 83880; 84484; 85025; 85379; 87077; 87086; 87186; 93005; 93041; 94150; 94640; 96360; 96361; 96365; 96374; 96375; 96376; 99285; J0696; J1940; J7609; A9270-GY

== ENCOUNTER 2018-07-14 15:32 | Observation (INO) | payer MEDICARE ==
[2018-07-14] MEDS ORDERED: NovoLOG Insulin SQ PRN (18:25)
--- NOTE | 2018-07-14 18:32 | PCM.HP ---
History of Present Illness - Chief Complaint Chief Complaint: Weakness, Exac CHF History of Present Illness: is a 88 year old female pt of mine from [facility] with DM, CHF, renal failure, and CAD who was directly admitted for fatigue and increasing SOB. She had stat labs done by today and her BNP is 12,700. BUN 19 and Cr 1.5. She was on dialysis up until about 10 days ago when she was cleared by Dr. Dunaway. She recently had an FL (05/04/18) and subsequent CABG with a long course of recovery. She denies any recent chest pain. she is short of breath just walking to the bathroom. No fever, no productive cough. She had leg swelling yesterday, but less today. Dr. Dunaway had been contacted and he started her on po lasix yesterday; she took 40mg po yesterday and 40mg po today. - Review of Systems Constitutional: Weakness Respiratory: Short Of Breath Cardiac: Edema Abdominal/Gastrointestinal: Appetite Changes (no appetite past 3d) All Other Systems: Reviewed and Negative Medications & Allergies Home Medications: Home Medication List Alprazolam 0.5 mg [xanAX 0.5 MG] 0.5 mg PO HS 04/27/18 [History Confirmed 05/30/18] Metoprolol Tartrate 25 mg PO DAILY 04/27/18 [History Confirmed 05/30/18] Pravastatin Sodium 40 mg PO HS 04/27/18 [History Confirmed 05/30/18] Ropinirole HCl 4 mg PO HS 04/27/18 [History Confirmed 05/30/18] Sulfasalazine 500 mg [Azulfidine 500 mg] 500 mg PO BID 04/27/18 [History Confirmed 05/30/18] Amlodipine Besylate [Norvasc] 2.5 mg PO DAILY 05/30/18 [History Confirmed ] Aspirin [Aspirin EC] 81 mg PO DAILY 05/30/18 [History Confirmed 05/30/18] Insulin Aspart [NovoLOG Insulin] 100 unit SQ DAILY 05/30/18 [History Confirmed 05/30/18] Promethazine HCl 25 mg [Phenergan 25 mg] 25 mg PO Q4-6HPRN PRN #12 tablet 05/30/18 [Rx] Allergies/Adverse Reactions: Allergies Allergy/AdvReac Type Severity Reaction Status Date / Time No Known Drug Allergies Allergy Verified 06/05/18 22:05 - Past Medical History Past Medical History: Yes Neurological History: No Pertinent History ENT History: Cataracts Cardiac History: Angina, Arrhythmia, Hypertension Respiratory History: CHF Endocrine Medical History: Diabetes Type II Musculoskelatal History: Arthritis GI Medical History: Gallbladder Disease History: Renal Disease Pyscho-Social History: No Pertinent History Reproductive Disorders: No Pertinent History - Past Surgical History Past Surgical History: Yes Neuro Surgical History: No Pertinent History Cardiac History: No Pertinent History Respiratory Surgery: No Pertinent History GI Surgical History: No Pertinent History Genitourinary Surgical Hx: No Pertinent History Musculskeletal Surgical Hx: No Pertinent History Other Surgical History: radha. hysterectomy. open heart - Social History Smoking Status: Smoker, status unknown Exposure to second hand smoke: No Alcohol: None Drug Use: none - Physical Exam General Appearance: no apparent distress, alert Neurologic Exam: oriented x 3, cooperative Eye Exam: eyes nml inspection Ears, Nose, Throat Exam: moist mucous membranes Neck Exam: normal inspection, non-tender, No lymphadenopathy Respiratory Exam: lungs clear, diminished breath sounds, No crackles/rales, No rhonchi, No wheezing Cardiovascular Exam: regular rate/rhythm, normal heart sounds, No murmur Gastrointestinal/Abdomen Exam: soft, normal bowel sounds, tenderness (RLQ), No distention, No mass, No guarding, No rebound Extremity Exam: normal inspection, No pedal edema, No swelling Skin Exam: normal color, warm, dry, decubitus (just proximal to gluteal cleft), No rash Results - Radiology Impressions Radiology Exams & Impressions: Radiology Procedures Category Date Time Status CHEST 1 VIEW (PORTABLE) Routine Exams 07/14/18 17:15 Taken - Other Procedures and Tests Respiratory Therapy 07/14/18 18:15 EKG STAT Assessment/Plan (1) CHF (congestive heart failure) Current Visit: No Status: Acute Qualifiers: Heart failure type: combined systolic and diastolic Heart failure chronicity: acute on chronic Qualified Code(s): I50.43 - Acute on chronic combined systolic (congestive) and diastolic (congestive) heart failure Assessment & Plan: on IV lasix 80mg daily. Consult Dr. Billy (she was supposed to repeat an echocardiogram with him tomorrow). Code(s): I50.9 - HEART FAILURE, UNSPECIFIED (2) Diabetes mellitus Current Visit: Yes Status: Acute Qualifiers: Diabetes mellitus type: type 2 Diabetes mellitus continuous churn buttermaker insulin use: with penitentiary use Diabetes mellitus complication status: with skin complications Diabetes mellitus complication detail: with other skin ulcer Qualified Code(s): E11.622 - Type 2 diabetes mellitus with other skin ulcer; Z79.4 - rat exterminator (current) use of insulin Code(s): E11.9 - TYPE 2 DIABETES MELLITUS WITHOUT COMPLICATIONS (3) Bilateral pleural effusion Current Visit: No Status: Acute Code(s): J90 - PLEURAL EFFUSION, NOT ELSEWHERE CLASSIFIED (4) Chronic renal failure Current Visit: No Status: Chronic Qualifiers: Chronic kidney disease stage: stage 3 (moderate) Qualified Code(s): N18.3 - Chronic kidney disease, stage 3 (moderate) Assessment & Plan: just discontinued dialysis. (5) HTN (hypertension) Current Visit: Yes Status: Acute Code(s): I10 - ESSENTIAL (PRIMARY) HYPERTENSION (6) Atrial fibrillation Current Visit: Yes Status: Acute Qualifiers: Atrial fibrillation type: chronic Qualified Code(s): I48.2 - Chronic atrial fibrillation Assessment & Plan: the only blood thinner I show on her med list is 81mg ASA daily; will need to reconcile med list. Code(s): I48.91 - UNSPECIFIED ATRIAL FIBRILLATION (7) PAD (peripheral artery disease) Current Visit: Yes Status: Acute Code(s): I73.9 - PERIPHERAL VASCULAR DISEASE, UNSPECIFIED (8) DVT prophylaxis Current Visit: Yes Status: Acute Assessment & Plan: if not on a thinner would order lovenox at prophylactic dose. Code(s): [id number] -
[2018-07-14] MEDS ORDERED: PROVENTIL Solution 2.5 MG/0.5 ML IH ONE (18:52)
[2018-07-14] MEDS: PROVENTIL 2.5 MG/3 ML NEB IH PRN (18:56)
[2018-07-14] MEDS: Furosemide 100mg/10 ml Vial IV SCH (19:35)
[2018-07-14] MEDS ORDERED: Tessalon Perles 100 MG PO PRN (20:17)
[2018-07-14] MEDS: REQUIP 2MG TAB PO SCH (21:25)
[2018-07-14] MEDS: xanAX 0.25 MG PO SCH (21:25)
[2018-07-14] MEDS: Lopressor 25MG Tab PO SCH (21:25)
[2018-07-14] MEDS ORDERED: ENOXAPARIN SODIUM SQ SCH (22:00)
[2018-07-15 06:04] LABS: Mean Cell Volume 94.6 fl (78-100); Mean Corpuscular Hemoglobin 28.1 pg (26-32); Mean Corpuscular Hgb Concent. 29.7 g/dl (32-36); Mean Platelet Volume 9.8 fl (6-9.5); Platelet Count 274 K/mm3 (150-450); Red Blood Count 3.91 M/mm3 (4.1-5.4); Red Cell Distribution Width 16.9 % (11.5-14.0); White Blood Count 5.1 K/mm3 (4.0-10.5)
[2018-07-15 06:27] LABS: ALBUMIN 3.6 g/dL (3.5-5.0); ANION GAP 11.4 MEQ/L (5-15); BILIRUBIN,TOTAL 0.4 mg/dL (0.2-1.3); Calcium 9.4 mg/dL (8.4-10.2); Creatinine 1 1.53 mg/dL (0.52-1.04); Potassium 4.1 mmol/L (3.5-5.1); Total Protein 7.4 g/dL (6.3-8.2)
[2018-07-15] MEDS: PROVENTIL 2.5 MG/3 ML NEB IH PRN (06:50)
--- NOTE | 2018-07-15 07:57 | PCM.NOTE ---
Date and Time: 07/15/18 1717 Subjective Assessment: She complains of being short of breath when she is up even to the bedside commode. No other complaints. Still no appetite. Was up urinating often in the night. She had a negative fluid balance of 770 last night. This morning she says that ever since her CABG when she stands up she feels short of breath. - Review of Systems Constitutional: No Fever Respiratory: Short Of Breath, No Wheezing Cardiac: No Chest Pain Objective Exam General Appearance: no apparent distress, alert, thin Neurologic Exam: oriented x 3, cooperative Skin Exam: normal color, warm, dry, No rash OBJECTIVE DATA Vital Signs: Vital Signs - 24 hr Temp Pulse Resp BP Pulse Ox 07/15/18 06:52 83 22 96 07/15/18 04:00 98 F 75 18 151/77 97 07/15/18 00:00 97.9 F 75 23 163/78 94 L 07/14/18 20:00 97.8 F 87 18 159/75 92 L 07/14/18 18:51 81 24 96 07/14/18 18:42 97.7 F 84 20 153/73 91 L Oxygen-Last 24 hours O2 Percentage 2 Liters = 28% O2 Percentage 2 Liters = 28% O2 Percentage 2 Liters = 28% Pain Assessment - Last Documented Pain Intensity 0 Pain Scale Used 0-10 Pain Scale,FLACC Intake and Output: Intake & Output 07/12/18 07/13/18 07/14/18 07/15/18 11:59 11:59 11:59 11:59 Intake Total 180 Output Total 1350 Balance -1170 Weight 62 kg Lab Results: Accuchecks Date 07/15/18 Date 07/14/18 Time 07:35 Time 22:00 Accucheck Value: 105 Lab Results-Last 24 Hours 07/14/18 07/14/18 07/15/18 Range/Units 18:30 23:37 05:22 WBC 5.1 (4.0-10.5) K/mm3 RBC 3.91 L (4.1-5.4) M/mm3 Hgb 11.0 L (12.0-16.0) gm/dl Hct 37.0 (35-47) % MCV 94.6 (78-100) fl MCH 28.1 (26-32) pg MCHC 29.7 L (32-36) g/dl RDW 16.9 H (11.5-14.0) % Plt Count 274 (150-450) K/mm3 MPV 9.8 H (6-9.5) fl Sodium (137-145) mmol/L Potassium (3.5-5.1) mmol/L Chloride (98-107) mmol/L Carbon Dioxide (22-30) mmol/L Anion Gap (5-15) MEQ/L BUN (7-17) mg/dL Creatinine (0.52-1.04) mg/dL Estimated GFR ML/MIN Glucose (74-106) mg/dL Calcium (8.4-10.2) mg/dL Total Bilirubin (0.2-1.3) mg/dL AST (14-36) U/L ALT (0-35) U/L Alkaline Phosphatase (38-126) U/L Troponin I 0.038 H* 0.040 H* (0.000-0.034) ng/mL NT-Pro-B Natriuret Pep (0-1800) pg/mL Serum Total Protein (6.3-8.2) g/dL Albumin (3.5-5.0) g/dL 07/15/18 Range/Units 05:22 WBC (4.0-10.5) K/mm3 RBC (4.1-5.4) M/mm3 Hgb (12.0-16.0) gm/dl Hct (35-47) % MCV (78-100) fl MCH (26-32) pg MCHC (32-36) g/dl RDW (11.5-14.0) % Plt Count (150-450) K/mm3 MPV (6-9.5) fl Sodium 143 (137-145) mmol/L Potassium 4.1 (3.5-5.1) mmol/L Chloride 101 (98-107) mmol/L Carbon Dioxide 34 H (22-30) mmol/L Anion Gap 11.4 (5-15) MEQ/L BUN 20 H (7-17) mg/dL Creatinine 1.53 H (0.52-1.04) mg/dL Estimated GFR 34.0 ML/MIN Glucose 93 (74-106) mg/dL Calcium 9.4 (8.4-10.2) mg/dL Total Bilirubin 0.40 (0.2-1.3) mg/dL AST 22 (14-36) U/L ALT 7 (0-35) U/L Alkaline Phosphatase 73 (38-126) U/L Troponin I (0.000-0.034) ng/mL NT-Pro-B Natriuret Pep 75911 H (0-1800) pg/mL Serum Total Protein 7.4 (6.3-8.2) g/dL Albumin 3.6 (3.5-5.0) g/dL Radiology Exams: Radiology Procedures Category Date Time Status CHEST 1 VIEW (PORTABLE) Routine Exams 07/14/18 17:15 Taken ECHO W/2D AND DOPPLER [US] Routine Exams 07/15/18 Ordered Assessment/Plan (1) CHF (congestive heart failure) Current Visit: No Status: Acute Qualifiers: Heart failure type: combined systolic and diastolic Heart failure chronicity: acute on chronic Qualified Code(s): I50.43 - Acute on chronic combined systolic (congestive) and diastolic (congestive) heart failure Assessment & Plan: She was supposed to have an echo with Dr. Billy today, so I have consulted him (thank you!) and ordered her echo. Her BNP is just marginally improved. Some of the elevation is doubtless due to her renal function impairment, but she does have pulmonary effusions on CXR. Clinically her lung sounds are good and she is not having edema. Code(s): I50.9 - HEART FAILURE, UNSPECIFIED (2) Elevated troponin Current Visit: Yes Status: Acute Assessment & Plan: Likely due to elevated Cr; pt asymptomatic and no change from first to second troponins. Dr. Billy was made aware last night. Code(s): R74.8 - ABNORMAL LEVELS OF OTHER SERUM ENZYMES (3) Bilateral pleural effusion Current Visit: No Status: Acute Code(s): J90 - PLEURAL EFFUSION, NOT ELSEWHERE CLASSIFIED (4) Diabetes mellitus Current Visit: Yes Status: Acute Qualifiers: Diabetes mellitus type: type 2 Diabetes mellitus security developer insulin use: with security developer use Diabetes mellitus complication status: with skin complications Diabetes mellitus complication detail: with other skin ulcer Qualified Code(s): E11.622 - Type 2 diabetes mellitus with other skin ulcer; Z79.4 - skilled nursing (current) use of insulin Code(s): E11.9 - TYPE 2 DIABETES MELLITUS WITHOUT COMPLICATIONS (5) Chronic renal failure Current Visit: No Status: Chronic Qualifiers: Chronic kidney disease stage: stage 3 (moderate) Qualified Code(s): N18.3 - Chronic kidney disease, stage 3 (moderate) Assessment & Plan: eGFR is 34 this morning, stable. (6) HTN (hypertension) Current Visit: Yes Status: Acute Qualifiers: Hypertension type: essential hypertension Qualified Code(s): I10 - Essential (primary) hypertension Assessment & Plan: BP are up to 150s/160s systolic. Will continue to observe. Code(s): I10 - ESSENTIAL (PRIMARY) HYPERTENSION (7) Atrial fibrillation Current Visit: Yes Status: Chronic Qualifiers: Atrial fibrillation type: chronic Qualified Code(s): I48.2 - Chronic atrial fibrillation Code(s): I48.91 - UNSPECIFIED ATRIAL FIBRILLATION (8) PAD (peripheral artery disease) Current Visit: Yes Status: Chronic Code(s): I73.9 - PERIPHERAL VASCULAR DISEASE, UNSPECIFIED (9) DVT prophylaxis Current Visit: Yes Status: Acute Code(s): [id number] -
[2018-07-15] MEDS ORDERED: TYLENOL 325 MG PO PRN (09:07)
[2018-07-15] MEDS ORDERED: PHENERGAN 25 MG PO PRN (09:07)
[2018-07-15] MEDS ORDERED: MILK OF MAGNESIA 30 ML PO PRN (09:07)
--- NOTE | 2018-07-15 09:08 | XRAY ---
Exam: AP upright portable chest film from 07/14/2018. Comparison: AP portable chest film from 06/05/2018. Indication: CHF, weakness. Findings: Although the left lateral cardiac border is obscured by a large left pleural effusion, the heart size is probably within normal limits. I again see evidence of prior CABG with midline sternotomy. A double-lumen right jugular dialysis catheter is seen with the tip pointing inferiorly within the distal SVC representing no change. No pneumothorax is seen. Large left pleural effusion now occupies the lower half of the left hemithorax and has increased as compared to 06/05/2018. There is also probable left basilar atelectasis. Concomitant left basilar pneumonia would not be able to be confirmed or excluded. The left hemidiaphragm and left lateral lung sulcus are completely obscured. Mild central vascular congestive changes are seen within the visualized left hilum and left suprahilar projection. The left lung apex remains clear. On the right side, there is a mild to moderate pleural effusion which has also increased as compared to 04/05/2019. Mild right perihilar and infrahilar vascular prominence is seen. Minimal linear pleural reaction is seen within the minor fissure on the right. The remainder of the right lung appears clear. Advanced osteoarthritic changes are seen within both shoulders with evidence of chronic rotator cuff disease. Prominent lateral osteophytes are seen within the lower thoracic and visualized upper lumbar spine. The bones are demineralized. Impression: 1. There is been interval increase of bibasilar pleural effusions, left greater than right, as discussed above. I believe there is also some concomitant left basilar atelectasis. Superimposed airspace pneumonic infiltrate at the left lung base cannot be excluded or confirmed. Correlate clinically. 2. The heart size appears probably within normal limits. However, there appears to be some mild left perihilar/suprahilar vascular congestion and less pronounced mild right perihilar vascular prominence. 3. No other active lung disease is seen.
[2018-07-15] MEDS: ECOTRIN 81 MG PO SCH (09:47)
[2018-07-15] MEDS: Protonix 40MG Tablet PO SCH (09:47)
[2018-07-15] MEDS: NORVASC 5 MG PO SCH (09:47)
[2018-07-15] MEDS: Flonase NASAL NS SCH ×2 (09:48→21:00)
[2018-07-15] MEDS: Furosemide 100mg/10 ml Vial IV SCH (09:48)
[2018-07-15] MEDS: Lopressor 25MG Tab PO SCH ×2 (09:50→20:57)
[2018-07-15] MEDS ORDERED: NON-FORMULARY ITEM (Amlodipine Besylate [Norvasc] 2.5 MG) PO SCH (10:00)
[2018-07-15] MEDS: AZULFIDINE 500 MG PO SCH ×2 (10:38→20:56)
[2018-07-15] MEDS: Paxil 20 MG PO SCH (10:39)
[2018-07-15] MEDS: Sodium Chloride 0.9% 10 ML FLUSH Syringe IV SCH ×3 (10:43→21:08)
[2018-07-15] MEDS: xanAX 0.25 MG PO SCH (20:56)
[2018-07-15] MEDS: REQUIP 2MG TAB PO SCH (20:56)
[2018-07-15] MEDS ORDERED: ZOCOR 20MG PO SCH (22:00)
[2018-07-15] MEDS ORDERED: ENOXAPARIN SODIUM SQ SCH (22:00)
[2018-07-16] MEDS: Sodium Chloride 0.9% 10 ML FLUSH Syringe IV SCH ×2 (04:56→14:12)
[2018-07-16 05:43] LABS: Hematocrit 36.9 % (35-47); Hemoglobin 10.8 gm/dl (12.0-16.0); Mean Cell Volume 94.6 fl (78-100); Mean Corpuscular Hgb Concent. 29.3 g/dl (32-36); Mean Platelet Volume 9.9 fl (6-9.5); Platelet Count 276 K/mm3 (150-450); Red Cell Distribution Width 16.6 % (11.5-14.0); White Blood Count 5.1 K/mm3 (4.0-10.5)
[2018-07-16 05:46] LABS: Mean Corpuscular Hemoglobin 27.6 pg (26-32)
[2018-07-16 06:06] LABS: ANION GAP 10.2 MEQ/L (5-15); Calcium 9.4 mg/dL (8.4-10.2); Creatinine 1 1.47 mg/dL (0.52-1.04); Potassium 3.9 mmol/L (3.5-5.1)
[2018-07-16 06:12] LABS: ALBUMIN 3.4 g/dL (3.5-5.0); ANION GAP 11.8 MEQ/L (5-15); Calcium 9.6 mg/dL (8.4-10.2); Creatinine 1 1.54 mg/dL (0.52-1.04); PHOSPHOROUS 4.1 mg/dL (2.5-4.5)
--- NOTE | 2018-07-16 08:01 | CONS ---
CONSULT DATE: 07/15/2018 BRIEF HISTORY: This is an 88 year-old female with known history of coronary artery disease status post recent coronary artery bypass surgery who was admitted because of shortness of breath. The patient had a triple vessel coronary artery bypass surgery in April and had a protracted hospitalization. She has an underlying left ventricular dysfunction. She came in with complaints of shortness of breath. Initial BNP was 12,000. She denies any chest pains. She has an underlying history of atrial fibrillation but currently is in sinus rhythm. CARDIAC RISK FACTORS: Positive for diabetes. Positive for hypertension. She does not smoke. She has hyperlipidemia. CURRENT MEDICATIONS: Alprazolam, amlodipine, Flonase, insulin, magnesium, promethazine, metoprolol, Lasix, Protonix, Paxil, Requip, Simvastatin. REVIEW OF SYSTEMS: INSPECTION MANAGER: No prior history of stroke. No seizures. RESPIRATORY: No chronic cough or hemoptysis. GI: She has occasional heartburn. No nausea. No vomiting. No diarrhea. : Negative for dysuria. She has a history of renal failure for which she underwent dialysis. PERIPHERAL VASCULAR: She has peripheral artery disease. MUSCULOSKELETAL: She has some degenerative joint disorder. PAST SURGICAL HISTORY: Includes hysterectomy, cholecystectomy, ankle surgery, coronary artery bypass surgery. SOCIAL HISTORY: She is staying at home. She has no significant alcohol intake. PHYSICAL EXAMINATION: Her blood pressure 140/70 with a heart rate of 86, respirations about 16. GENERAL: The patient is an elderly female who looks frail who gets short of breath with very little exertion. HEENT: Nonicteric sclera. NECK: No significant JVD. No carotid bruit. CHEST: The breath sounds are clear. There is a well healed sternotomy scar. CARDIAC: Heart tones are normal. The rhythm is regular. There is a grade 2/6 mid systolic murmur. ABDOMEN: Soft with normal bowel sounds. EXTREMITIES: No significant edema. Decreased distal pulses. LAB DATA AND DIAGNOSTIC TESTS: The creatinine 1.5 with glomerular filtration rate of 34. ProBNP is 12,600. The EKG shows sinus rhythm with left ventricular hypertrophy and nonspecific ST-T changes. IMPRESSION: In essence the patient presented with: 1) Shortness of breath with elevated BNP. Currently she looks like she does not have any significant peripheral edema. 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 I am going to get a CT scan of the chest to get a better picture of the degree of pleural effusion as this might require a drainage procedure. 2) Status post coronary artery bypass surgery. 3) History of diabetes. 4) Hypertension. 5) History of renal failure with partial recovery of renal function. 6) History of atrial fibrillation currently normal sinus rhythm. I will follow up with you.
--- NOTE | 2018-07-16 08:24 | PCM.NOTE ---
Date and Time: 07/16/18820 Subjective Assessment: Dr. Billy saw the pt yesterday, thank you, and ordered a CT scan of the chest. Pt says she is feeling a little better than on admission with respect to her shortness of breath. - Review of Systems Constitutional: No Fever Respiratory: Short Of Breath Objective Exam General Appearance: no apparent distress, alert Neurologic Exam: oriented x 3, cooperative Skin Exam: normal color, warm, dry, No rash Respiratory Exam: normal breath sounds, lungs clear, No crackles/rales, No rhonchi, No wheezing Cardiovascular Exam: regular rate/rhythm, normal heart sounds, No murmur Gastrointestinal/Abdomen Exam: soft, normal bowel sounds, No tenderness, No distention, No mass, No guarding, No rebound Extremity Exam: normal inspection, No pedal edema, No swelling OBJECTIVE DATA Vital Signs: Vital Signs - 24 hr Temp Pulse Resp BP Pulse Ox 07/16/18 04:00 97.8 F 74 22 155/72 90 L 07/16/18 00:00 98.0 F 77 18 157/74 92 L 07/15/18 20:00 98.3 F 82 16 153/72 92 L 07/15/18 19:46 95 H 18 95 07/15/18 16:00 98.2 F 80 18 160/74 95 07/15/18 12:00 97.8 F 82 17 153/70 95 Oxygen-Last 24 hours O2 Percentage 2 Liters = 28% O2 Percentage 2 Liters = 28% O2 Percentage 2 Liters = 28% O2 Percentage 2 Liters = 28% O2 Percentage 2 Liters = 28% Pain Assessment - Last Documented Pain Intensity 0 Pain Scale Used 0-10 Pain Scale Intake and Output: Intake & Output 07/13/18 07/14/18 07/15/18 07/16/18 11:59 11:59 11:59 11:59 Intake Total 300 840 Output Total 1850 1500 Balance -1550 -660 Weight 62 kg 59.2 kg Lab Results: Accuchecks Date 07/15/18 Date 07/15/18 Date 07/15/18 Time 22:00 Time 17:00 Time 11:35 Accucheck Value: 98 Accucheck Value: 126 Accucheck Value: 111 Lab Results-Last 24 Hours 07/16/18 07/16/18 07/16/18 Range/Units 05:36 05:36 05:36 WBC 5.1 (4.0-10.5) K/mm3 RBC 3.90 L (4.1-5.4) M/mm3 Hgb 10.8 L (12.0-16.0) gm/dl Hct 36.9 (35-47) % MCV 94.6 (78-100) fl MCH 27.6 (26-32) pg MCHC 29.3 L (32-36) g/dl RDW 16.6 H (11.5-14.0) % Plt Count 276 (150-450) K/mm3 MPV 9.9 H (6-9.5) fl Sodium 142 142 (137-145) mmol/L Potassium 3.9 5.0 D (3.5-5.1) mmol/L Chloride 100 101 (98-107) mmol/L Carbon Dioxide 35 H 34 H (22-30) mmol/L Anion Gap 10.2 11.8 (5-15) MEQ/L BUN 21 H 21 H (7-17) mg/dL Creatinine 1.47 H 1.54 H (0.52-1.04) mg/dL Estimated GFR 35.7 33.8 ML/MIN Glucose 101 99 (74-106) mg/dL Calcium 9.4 9.6 (8.4-10.2) mg/dL Phosphorus 4.1 (2.5-4.5) mg/dL NT-Pro-B Natriuret Pep 90285 H (0-1800) pg/mL Albumin 3.4 L (3.5-5.0) g/dL Radiology Exams: Radiology Procedures Category Date Time Status CHEST 1 VIEW (PORTABLE) Routine Exams 07/14/18 17:15 Completed CHEST WITHOUT CONTRAST [CT] Routine Exams 07/15/18 17:30 Taken ECHO W/2D AND DOPPLER [US] Routine Exams 07/15/18 09:37 Taken Assessment/Plan (1) CHF (congestive heart failure) Current Visit: No Status: Acute Qualifiers: Heart failure type: combined systolic and diastolic Heart failure chronicity: acute on chronic Qualified Code(s): I50.43 - Acute on chronic combined systolic (congestive) and diastolic (congestive) heart failure Assessment & Plan: Dr. Billy thinks her SOB may not be predominantly CHF, but due to pleural effusions. CT is in the cloud, when Dr. Hand evaluates it, if he wants her transferred to [facility] Dr. Billy will let me know. 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 (5) HTN (hypertension) Current Visit: Yes Status: Acute Qualifiers: Hypertension type: essential hypertension Qualified Code(s): I10 - Essential (primary) hypertension Code(s): I10 - ESSENTIAL (PRIMARY) HYPERTENSION (6) Atrial fibrillation Current Visit: Yes Status: Chronic Qualifiers: Atrial fibrillation type: chronic Qualified Code(s): I48.2 - Chronic atrial fibrillation Code(s): I48.91 - UNSPECIFIED ATRIAL FIBRILLATION (7) PAD (peripheral artery disease) Current Visit: Yes Status: Chronic Code(s): I73.9 - PERIPHERAL VASCULAR DISEASE, UNSPECIFIED (8) DVT prophylaxis Current Visit: Yes Status: Acute Code(s): [id number] -
[2018-07-16] MEDS ORDERED: Lasix 40 MG PO SCH (10:00)
[2018-07-16] MEDS: Lopressor 25MG Tab PO SCH (10:36)
[2018-07-16] MEDS: Flonase NASAL NS SCH (10:36)
[2018-07-16] MEDS: ECOTRIN 81 MG PO SCH (10:36)
[2018-07-16] MEDS: Protonix 40MG Tablet PO SCH (10:36)
[2018-07-16] MEDS: NORVASC 5 MG PO SCH (10:36)
[2018-07-16] MEDS: AZULFIDINE 500 MG PO SCH (10:36)
[2018-07-16] MEDS: Paxil 20 MG PO SCH (10:36)
--- NOTE | 2018-07-16 11:50 | XRAY ---
Exam: CT of the chest without IV contrast from 07/15/2018. CTDI: 14.25 Comparison: AP upright portable chest film from 07/14/2018. Indication: 88-year-old female with pleural effusions, prior CABG. Technique: Non-IV contrast axial images were obtained through the chest. Reconstructed coronal and sagittal images were created and reviewed. Findings: I again note a double-lumen right jugular dialysis catheter with the tip in the distal SVC. There is evidence of prior CABG with midline sternotomy. There is a large left pleural effusion and a mild to moderate right pleural effusion. The heart size is mildly enlarged with post some left ventricular and left atrial enlargement. Coronary artery vascular calcification is seen. Atherosclerotic vascular calcification is seen within a mildly tortuous thoracic aorta. No thoracic aortic aneurysm is seen. I do not see any pathological mediastinal or perihilar lymph nodes. I do note small probably reactive mediastinal lymph nodes within the superior mediastinum and precarinal projection. In addition to the large pleural effusion on the left, I see moderate atelectasis at the left lung base with some air bronchograms. The possibility of some concomitant pneumonia cannot be excluded. There also appears to be a smaller area of consolidated lung at the right lung base with some air bronchograms which may reflect atelectasis and possibly some pneumonia. A calcified granuloma is seen at the right lung base. There are a few right perihilar calcifications. The remainder of the lung eugene appears clear. No pneumothorax is seen. The upper abdomen reveals surgical clips consistent with prior cholecystectomy within the right upper quadrant. Atherosclerotic vascular calcifications are seen. The adrenal glands appear unremarkable. I believe there is some mild generalized pancreatic atrophy. I suspect some minimal diverticula within the splenic flexure in the left upper quadrant. No adjacent inflammatory changes are seen. The bones are demineralized. Moderate diffuse thoracic spondylosis and dorsal kyphosis are seen. Impression: 1. Large left pleural effusion, mild to moderate right basilar pleural effusion, and bibasilar consolidations with air bronchograms consistent with atelectasis and possibly some bibasilar pneumonia. The findings appear similar to the AP portable chest radiographs 07/14/2018. 2. Mild cardiomegaly, coronary artery vascular calcification, evidence of prior CABG, and right jugular dialysis catheter in place, as discussed above.
[2018-07-16] MEDS ORDERED: ROCEPHIN 1 Gm-D5w 50 ml Bag** 1 G/50 ML IVPB IV SCH (13:00)
[2018-07-16] MEDS ORDERED: Zithromax 500 MG/ 250 ML NaCl Premix 500 MG/250 ML IVPB IV SCH (14:00)
[2018-07-16 16:19] VITALS: BP 141/75; PULSE 85; O2SAT 96
--- NOTE | 2018-07-20 12:43 | ECHO ---
Transthoracic echocardiographic examination and color Doppler was done on 07/15/2018. INDICATION: Congestive heart failure, shortness of breath. IMPRESSION: 1) GLOBAL LEFT VENTRICULAR HYPOKINESIA. EJECTION FRACTION BETWEEN 30 AND 40%. 2) MODERATE MITRAL REGURGITATION. 3) MILD AORTIC REGURGITATION. 4) TRACE TRICUSPID REGURGITATION. RIGHT VENTRICULAR SYSTOLIC PRESSURE OF 40 MM OF MERCURY. 5) MILDLY DILATED LEFT VENTRICLE. 6) LEFT VENTRICULAR HYPERTROPHY. 7) LEFT VENTRICULAR DIASTOLIC DYSFUNCTION. 8) LEFT-SIDED PLEURAL EFFUSION. The left ventricle is visualized and demonstrated global-type of hypokinesia. Ejection fraction between 30 and 40%. There is mild left ventricular hypertrophy. The mitral valve is seen and this opens adequately. There is moderate mitral regurgitation. Left atrium is enlarged. The aortic valve is sclerotic. There is no significant gradient across left ventricular outflow tract. There is mild aortic regurgitation. The right side chambers are normal. There is mild tricuspid regurgitation with the right ventricular systolic pressure of 40 mm of Mercury. The mitral inflow study shows left ventricular diastolic dysfunction. There is also a left-sided pleural effusion which appears to be moderate in degree.
== END 2018-07-16 17:15 | disposition short-term general hospital (02) ==
LOC: MED SURG 16:56
PROVIDERS: ADMIT Family Medicine; ATTEND Family Medicine
DX: I50.9 Heart failure, unspecified (principal); I10 Essential (primary) hypertension; J90 Pleural effusion, not elsewhere classified; E11.9 Type 2 diabetes mellitus without complications; N18.3 Chronic kidney disease, stage 3 (moderate); E78.5 Hyperlipidemia, unspecified; L89.303 Pressure ulcer of unspecified buttock, stage 3; I48.91 Unspecified atrial fibrillation; R79.89 Other specified abnormal findings of blood chemistry; R74.8 Abnormal levels of other serum enzymes; I73.9 Peripheral vascular disease, unspecified; Z79.4 Long term (current) use of insulin; Z79.899 Other long term (current) drug therapy; Z95.1 Presence of aortocoronary bypass graft
CPT/HCPCS: 36415; 71045; 71250; 80048; 80053; 80069; 82962; 83880; 84484; 85027; 93005; 93268; 93306; 94640; 94760; G0378; J0456; J0696; J1650; J1940; J7609; A9270-GY